=== PATIENT | male | born 1945 | race Two or more races ===

== ENCOUNTER → 2017-01-16 | Outpatient (CLI) | payer OTHER ==
--- NOTE | 2017-02-02 00:35 | ECWPNPC ---
PATIENT NAME: JUANY MUELLER : 1945 GENDER: MALE VISIT DATE: 01/16/2017 DISCHARGE DATE: 01/16/17 1221 VISIT LOCKED DATE TIME: PHYSICIAN: ITA PATRICK RESOURCE: ITA PATRICK REASON FOR APPOINTMENT 1. BACK HISTORY OF PRESENT ILLNESS HISTORY OF PRESENT ILLNESS: 71 Y/O MALE WITH LONG HISTORY OF CHRONIC LOW BACK PAIN.FELL FROM TRUCK [employer] 15 YEARS AGO AND LANDED ON PAVEMENT.SUFFERS FROM CHRONIC LOW BACK AND LEG PAIN.PAIN IS AGGREVATED BY WALKING AND RELIEVED BY SITTING.WAS USING GABAPENTIN 800MG TID AND TIZANIDINE 2MG TWO TAB. AT HS.FOUND TIZANIDINE HELPFUL AT NIGHT BUT REALLY NO IMPROVEMENT IN PAIN WITH GABAPENTIN.HAS BEEN USING IBUPROFEN 200MG EIGHT TABLETS DAILY.RATING PAIN VAS 10/10.DENIES RECENT FEVER ILLNESS OR WEIGHT LOSS.REPORTING NORMAL BOWEL AND BLADDER FUNCTION.HAS TRIALED PT AND PERSONAL CLOTHING LAUNDRY AIDE WITHOUT IMPROVEMENT AND SOME AGGREVATION.REPORTING POOR SLEEP AT NIGHT DUE TO PAIN. FALL RISK SCREENING: SCREENING :NO FALLS IN THE PAST YEAR CURRENT MEDICATIONS TAKING CARVEDILOL 25 MG TABLET ORALLY TAKING ATORVASTATIN CALCIUM 20 MG TABLET 1 TABLET ORALLY ONCE A DAY TAKING METFORMIN HCL 500 MG TABLET 1 TABLET WITH MEALS ORALLY TWICE A DAY TAKING GABAPENTIN 800 MG TABLET 1 TABLET ORALLY THREE TIMES A DAY TAKING LASIX 40 MG TABLET 1 TABLET ORALLY ONCE A DAY TAKING TIZANIDINE HCL 2 MG CAPSULE 1 CAPSULE NEEDED ORALLY BID TAKING ARTHRITIS PAIN REGIMEN EX ST 500 MG TABLET DELAYED RELEASE 1 TABLET ORALLY ONCE A DAY MEDICATION LIST REVIEWED AND RECONCILED WITH THE PATIENT PAST MEDICAL HISTORY LOW BACK PAIN CAD DM HEADACHE HEARING LOSS HEART FAILURE RHEUMATIC FEVER ANGINA ALLERGIES N.K.D.A. SURGICAL HISTORY INTESTINAL POLYP REMOVED APPENDECTOMY TONSILLECTOMY RIGHT FOOT HEEL FX PIN PLACED CARDIAC STENTS X2 FAMILY HISTORY FATHER: 66 YRS MOTHER: 78 YRS, DIAGNOSED WITH DIABETES SIBLINGS: ALIVE SON(S): ALIVE 1 BROTHER(S) , 1 SISTER(S) . 2 SON(S) , 1 DAUGHTER(S) . FATHER OF BLOOD CLOTPT HAS 1 CHILD . SOCIAL HISTORY GENERAL: TOBACCO USE ARE YOU A:FORMER SMOKER HOW LONG HAS IT BEEN SINCE YOU LAST SMOKED?> 10 YEARS LUNG CANCER SCREENING SMOKING STATUS:FORMER SMOKER ALCOHOL SCREENING POINTS0 INTERPRETATIONNEGATIVE OCCUPATION: MECHANICAL DESIGN TECHNICIAN. MARITAL STATUS: . [employer] [id number] EP[employer] LANGUAGE LANGUAGES SPOKEN:BARBADIAN EDUCATION LEVEL OF EDUCATION:NOT FINISHED COLLEGE LEARNING BARRIERS / SPECIAL NEEDS HEARING IMPAIRED?YES :HEARING AIDES VISION IMPAIRED?YES :CORRECTIVE LENSES COGNITIVELY IMPAIRED?NO READINESS TO LEARN?YES LEARNING PREFERENCES?YES :BOOKLETS, HANDOUTS SPECIAL DEVICES?YES :[facility] PFS, CLERGY, PUBLIC HEALTH REFERRALS HAS THE PATIENT BEEN EDUCATED REGARDING HIS/HER PLAN OF CARE?YES HAS THE PATIENT BEEN EDUCATED REGARDING PAIN, THE RISK FOR PAIN, THE IMPORTANCE OF EFFECTIVE PAIN MANAGEMENT, AND THE PAIN ASSESSMENT PROCESS?YES ADVANCE DIRECTIVES HEALTH CARE PROXY?NO WOULD YOU LIKE MORE INFORMATION?NO DO YOU HAVE A DNR?NO WOULD YOU LIKE MORE INFORMATION?NO LIVING WILL?NO WOULD YOU LIKE MORE INFORMATION?NO POWER OF INSTALL TECHNICIAN?NO WOULD YOU LIKE MORE INFORMATION?NO RETIRED: NO. HOSPITALIZATION/MAJOR DIAGNOSTIC PROCEDURE S/S FROM TIC BITE, PT DENIES LYME DISEASE SURGERY RELATED REVIEW OF SYSTEMS REVIEWED BY: PROVIDER: ITA ESPINOSA . CONSTITUTIONAL: ANY CHANGE IN YOUR MEDICAL CONDITION? NO . CHILLS NO . FEVER NO . INFECTION: DO YOU HAVE NEW INFECTIONS? NO . DO YOU HAVE HISTORY OF MRSA? NO . MUSCULOSKELETAL: ANY NEW PATTERNS OF PAIN OR NUMBNESS? YES, PT STATES HE WAS TAKING GABAPENTIN 800 TID AND TIZANIDINE 2 BID PERSCRIBED BY PAIN CLINIC [facility] IN [place], [place]. PT STATES HE RECEIVED A LETTER FROM [facility] THAT THEY NO LONGER ACCEPT HIS INSURANCE. PT WENT TO PCP TO ASK FOR REFILLS ON GABAPENTIN & TIZANIDINE AND WAS REFERED TO [facility] . GASTROENTEROLOGY: ANY NEW CHANGE IN BOWEL CONTROL? NO . GENITOURINARY: ANY NEW CHANGE IN BLADDER CONTROL? NO . IS THERE A CHANCE YOU COULD BE ? NO . HEMATOLOGY/LYMPH: DO YOU TAKE ANY BLOOD THINNERS? (FOR EXAMPLE- COUMADIN, PLAVIX, AGGRENOX, PLATEL, PRADAXA, OR XARELTO) NO . WHEN WAS YOUR LAST DOSE? DATE: TIME: . NEUROLOGY: HAVE YOU FALLEN IN THE PAST 6 MONTHS? NO . ANY NEW EXTREMITY NUMBNESS OR WEAKNESS? NO . CARDIOLOGY: DO YOU HAVE A PACEMAKER OR DEFIBRILLATOR? NO . RESPIRATORY: HAVE YOU BEEN SICK IN THE PAST WEEK? NO . FEVER NO . FLU LIKE SYMPTOMS? NO . COUGH NO . INTEGUMENTARY: DO YOU HAVE ANY RASHES OR OPEN SORES? NO . ALLERGIC/IMMUNO: ARE YOU ALLERGIC TO SHELLFISH OR IV DYE? NO . ANY NEW ALLERGIES? NO . PSYCHIATRIC: DO YOU HAVE THOUGHTS OF HURTING YOURSELF OR SOMEONE ELSE? NO . ARE YOU ABUSED, NEGLECTED, OR IN AN UNSAFE ENVIRONMENT? NO . ENDOCRINOLOGY: ARE YOU DIABETIC? YES . OTHER: DO YOU NEED ANY PRESCRIPTIONS? YES, PT ASKING FOR GABAPENTIN & TIZANIDINE . IF YES, PLEASE LIST: ____ . ANY NEW PROBLEMS WITH YOUR MEDICATIONS? NO . WHEN DID YOU LAST EAT? ____ . WHEN DID YOU LAST DRINK? ____ . WHAT DID YOU LAST DRINK? ____ . NAME OF PERSON DRIVING YOU HOME? ____ . DO YOU HAVE ANY OTHER QUESTIONS OR CONCERNS NO . VITAL SIGNS WT 255 LBS, HT 70 IN, BMI 36.58 INDEX, BP 140/85 MM HG, HR 64 /MIN, RR 16 /MIN, TEMP 98.5 F, OXYGEN SAT % 94, REVIEWED BY: EM. EXAMINATION GENERAL EXAMINATION: GENERAL APPEARANCE:COMFORTABLE. PSYCHAFFECT NORMAL. NECK:TRACHEA MIDLINE. NO CERVICAL OR SUPRACLAVICULAR LYMPHADENOPATHY NOTED. LUNGS:LUNG [place] ARE CLEAR TO AUSCULTATION BILATERALLY. GOOD MOVEMENT OF AIR. HEART:S1, S2 IN A REGULAR RATE AND RHYTHM. NO SIGNIFICANT MURMURS, RUBS OR GALLOPS NOTED. ABDOMEN:SOFT, NON-TENDER, NO ORGANOMEGALY, BOWEL SOUNDS ARE NORMAL. MUSCULOSKELETAL:MUSCLE STRENGTH TESTING 5/5 RIGHT.LEFT LEG DECREASED SENSATION TO LIGHT TOUCH.MUSCLE STRENGTH TESTING 3/5 RIGHT.. LUMBAR SACRAL SPINEPALPATION: POSITIVE FOR PAIN OVER L/S SPINE. POSITIVE FOR PAIN OVER L/S PARASPINALS. 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 WITHOUT [id number] PROCEDURE CODES FA211 ESTABILISHED PATIENT [facility] CHARGE DISPOSITION & COMMUNICATION FOLLOW UP 4 WEEKS ELECTRONICALLY SIGNED BY FRANCISCA PRYOR ON 02/01/2017 AT 09:37 PM EDT DISCLAIMER : THIS IS A VISIT SUMMARY EXTRACTED FROM THE [employer] CHART. IT IS NOT A COPY OF THE [employer] PROGRESS NOTE. TOYA
== END ==
LOC: M PAIN 11:15
PROVIDERS: ATTEND Nurse Practitioner Family
DX: G89.29 Other chronic pain (principal); M54.40 Lumbago with sciatica, unspecified side; E11.9 Type 2 diabetes mellitus without complications; Z79.84 Long term (current) use of oral hypoglycemic drugs; Z79.899 Other long term (current) drug therapy; Z87.891 Personal history of nicotine dependence

== ENCOUNTER → 2017-02-20 | Outpatient (CLI) | payer OTHER ==
--- NOTE | 2017-02-20 12:18 | REP ---
MR LUMBAR SPINE WITHOUT CONTRAST: HISTORY: Back pain. Decreased signal intensity on T2-weighted images is present in the visualized t thoracic and lumbar intervertebral discs. The discs are decreased in height. These findings are consistent with disc degeneration. A diffuse disc bulge with associated osteophyte formation is present at the L1-2 level. There is hypertrophy of the ligamenta flava and posterior articulating facets. These findings produce mild central canal stenosis. There is compression of the left L1 nerve in the neural foramen. The right L1 nerve exits the neural foramen without compression. A diffuse disc bulge with associated osteophyte formation is present at the L2-3 level. There is hypertrophy of the ligamenta flava and posterior articulating facets. These findings produce severe central canal stenosis. There is compression of the L2 nerves in the neural foramina . A diffuse disc bulge with associated osteophyte formation is present at the L3-4 level. There is hypertrophy of the ligamenta flava and posterior articulating facets. These findings produce severe central canal stenosis. There is compression of the L3 nerves in the neural foramina. A diffuse disc bulge with associated osteophyte formation is present at the L4-5 level. There is hypertrophy of the ligamenta flava and posterior articulating facets. These findings produce moderate central canal stenosis. There is compression of the L4 nerves in the neural foramina. A diffuse disc bulge is present at the L5-S1 level. There is minimal compression of the thecal sac. There is hypertrophy of the posterior articulating facets. There are 5 mm of grade 1 spondylolisthesis of L5 on S1. This is associated with L5 pars defects. There is compression of the L5 nerves in the neural foramina. The conus medullaris is normal in appearance terminating at the level of the T12-L1 intervertebral disc. There is an old compression fracture of the L1 vertebral body with minimal height loss. Increased signal intensity on T2-weighted images is present in the endplates of the L1 through S1 vertebral bodies. This represents degenerative change. There is scoliosis convex to the left. IMPRESSION: 1. Mild central canal stenosis at the L1-2 level secondary to disc bulge, ligamentous and facet hypertrophy and osteophyte formation. There is compression of the left L1 nerve in the neural foramen. 2. Severe central canal stenosis at the L2-3 and L3-4 levels secondary to disc bulge ligamentous and facet hypertrophy and osteophyte formation. There is compression of the L2 and L3 nerves in the neural foramina. 3. Moderate central canal stenosis at the L4-5 level secondary to disc bulge, ligamentous and facet hypertrophy and osteophyte formation. There is compression of the L4 nerves in the neural foramina. 4. Diffuse disc bulge at the L5-S1 level with minimal thecal sac compression. There is grade 1 spondylolisthesis of L5 on S1 with associated L5 pars defects. There is compression of the L5 nerves in the neural foramina. I Signed by Jake Goldstein MD 02/20/2017 12:21 P
== END ==
LOC: M PLARAD 10:29
PROVIDERS: ATTEND Nurse Practitioner Family
DX: M54.5 Low back pain (principal)

== ENCOUNTER → 2017-03-19 | Outpatient (CLI) | payer OTHER ==
--- NOTE | 2017-04-09 00:44 | ECWPNPC ---
PATIENT NAME: JUANY MUELLER : 1945 GENDER: MALE VISIT DATE: 03/19/2017 DISCHARGE DATE: 03/19/17 1210 VISIT LOCKED DATE TIME: PHYSICIAN: ITA PATRICK RESOURCE: ITA PATRICK REASON FOR APPOINTMENT 1. REVIEW MRI HISTORY OF PRESENT ILLNESS HISTORY OF PRESENT ILLNESS: HERE FOR F/U AND MANAGEMENT OF CHRONIC LOW BACK PAIN WITH LEFT LEG RADICULAR SYMPTOMS.RATING PAIN VAS 8/10.MRI L/S SPINE 02/20/17 IS REVIEWED WITH PATIENT AND HIS AND DISCUSSED TREATMENT OPTIONS WHICH TOOK >20MIN OF EXAM TIME.HE WAS STARTED ON LYRICA 75MG BID AT INITIAL VISIT AND IS NOT FINDING THIS HELPFUL.DISCUSSED TREATMENT OPTIONS. PAIN THE PATIENT DESCRIBES THE PAIN... FALL RISK SCREENING: SCREENING :NO FALLS IN THE PAST YEAR CURRENT MEDICATIONS TAKING CARVEDILOL 25 MG TABLET ORALLY TAKING ATORVASTATIN CALCIUM 20 MG TABLET 1 TABLET ORALLY ONCE A DAY TAKING METFORMIN HCL 500 MG TABLET 1 TABLET WITH MEALS ORALLY TWICE A DAY TAKING GABAPENTIN 800 MG TABLET 1 TABLET ORALLY THREE TIMES A DAY TAKING LASIX 40 MG TABLET 1 TABLET ORALLY ONCE A DAY TAKING TIZANIDINE HCL 2 MG CAPSULE 1 CAPSULE NEEDED ORALLY BID TAKING ARTHRITIS PAIN REGIMEN EX ST 500 MG TABLET DELAYED RELEASE 1 TABLET ORALLY ONCE A DAY TAKING LYRICA 75 MG CAPSULE 1 CAPSULE ORALLY TWICE A DAY MDD2 TAKING TIZANIDINE HCL 4 MG TABLET 1 TABLET NEEDED ORALLY ONE AT HS MEDICATION LIST REVIEWED AND RECONCILED WITH THE PATIENT PAST MEDICAL HISTORY LOW BACK PAIN CAD DM HEADACHE HEARING LOSS HEART FAILURE RHEUMATIC FEVER ANGINA ALLERGIES N.K.D.A. SURGICAL HISTORY INTESTINAL POLYP REMOVED APPENDECTOMY TONSILLECTOMY RIGHT FOOT HEEL FX PIN PLACED CARDIAC STENTS X2 SOCIAL HISTORY GENERAL: TOBACCO USE ARE YOU A:FORMER SMOKER HOW LONG HAS IT BEEN SINCE YOU LAST SMOKED?> 10 YEARS LUNG CANCER SCREENING SMOKING STATUS:FORMER SMOKER ALCOHOL SCREENING DID YOU HAVE A DRINK CONTAINING ALCOHOL IN THE PAST YEAR?NO POINTS0 INTERPRETATIONNEGATIVE OCCUPATION: REHAB CARE ASSISTANT. MARITAL STATUS: . PRESYBETERIAN [id number] ANABAPTIST LANGUAGE LANGUAGES SPOKEN:THAI EDUCATION LEVEL OF EDUCATION:NOT FINISHED COLLEGE LEARNING BARRIERS / SPECIAL NEEDS HEARING IMPAIRED?YES :HEARING AIDES VISION IMPAIRED?YES :CORRECTIVE LENSES COGNITIVELY IMPAIRED?NO READINESS TO LEARN?YES LEARNING PREFERENCES?YES :BOOKLETS, HANDOUTS SPECIAL DEVICES?YES :[facility] PFS, CLERGY, PUBLIC HEALTH REFERRALS HAS THE PATIENT BEEN EDUCATED REGARDING HIS/HER PLAN OF CARE?YES HAS THE PATIENT BEEN EDUCATED REGARDING PAIN, THE RISK FOR PAIN, THE IMPORTANCE OF EFFECTIVE PAIN MANAGEMENT, AND THE PAIN ASSESSMENT PROCESS?YES ADVANCE DIRECTIVES HEALTH CARE PROXY?NO WOULD YOU LIKE MORE INFORMATION?NO DO YOU HAVE A DNR?NO WOULD YOU LIKE MORE INFORMATION?NO LIVING WILL?NO WOULD YOU LIKE MORE INFORMATION?NO POWER OF ANIMAL EVISCERATOR?NO WOULD YOU LIKE MORE INFORMATION?NO RETIRED: NO. HOSPITALIZATION/MAJOR DIAGNOSTIC PROCEDURE S/S FROM TIC BITE, PT DENIES LYME DISEASE SURGERY RELATED REVIEW OF SYSTEMS REVIEWED BY: PROVIDER: ITA ESPINOSA . CONSTITUTIONAL: ANY CHANGE IN YOUR MEDICAL CONDITION? NO . CHILLS NO . FEVER NO . INFECTION: DO YOU HAVE NEW INFECTIONS? NO . DO YOU HAVE HISTORY OF MRSA? NO . MUSCULOSKELETAL: ANY NEW PATTERNS OF PAIN OR NUMBNESS? NO . GASTROENTEROLOGY: ANY NEW CHANGE IN BOWEL CONTROL? NO . GENITOURINARY: ANY NEW CHANGE IN BLADDER CONTROL? NO . IS THERE A CHANCE YOU COULD BE ? NO . HEMATOLOGY/LYMPH: DO YOU TAKE ANY BLOOD THINNERS? (FOR EXAMPLE- COUMADIN, PLAVIX, AGGRENOX, PLATEL, PRADAXA, OR XARELTO) NO . WHEN WAS YOUR LAST DOSE? DATE: TIME: . NEUROLOGY: HAVE YOU FALLEN IN THE PAST 6 MONTHS? NO . ANY NEW EXTREMITY NUMBNESS OR WEAKNESS? NO . CARDIOLOGY: DO YOU HAVE A PACEMAKER OR DEFIBRILLATOR? NO . RESPIRATORY: HAVE YOU BEEN SICK IN THE PAST WEEK? NO . FEVER NO . FLU LIKE SYMPTOMS? NO . COUGH NO . INTEGUMENTARY: DO YOU HAVE ANY RASHES OR OPEN SORES? NO . ALLERGIC/IMMUNO: ARE YOU ALLERGIC TO SHELLFISH OR IV DYE? NO . ANY NEW ALLERGIES? NO . PSYCHIATRIC: DO YOU HAVE THOUGHTS OF HURTING YOURSELF OR SOMEONE ELSE? NO . ARE YOU ABUSED, NEGLECTED, OR IN AN UNSAFE ENVIRONMENT? NO . ENDOCRINOLOGY: ARE YOU DIABETIC? NO . OTHER: DO YOU NEED ANY PRESCRIPTIONS? NO . IF YES, PLEASE LIST: ____ . ANY NEW PROBLEMS WITH YOUR MEDICATIONS? NO . WHEN DID YOU LAST EAT? ____ . WHEN DID YOU LAST DRINK? ____ . WHAT DID YOU LAST DRINK? ____ . NAME OF PERSON DRIVING YOU HOME? ____ . DO YOU HAVE ANY OTHER QUESTIONS OR CONCERNS NO, PT STATES HE HAD A FLU VACCINE 2 WEEKS AGO . VITAL SIGNS WT 249.4 LBS, HT 70 IN, BMI 35.78 INDEX, BP 151/79 MM HG, HR 73 /MIN, RR 16 /MIN, TEMP 97.9 F, OXYGEN SAT % 96%, NA INITIALS TL 1103, REVIEWED BY: EM. EXAMINATION GENERAL EXAMINATION: GENERAL APPEARANCE:COMFORTABLE . PSYCHAFFECT NORMAL . NECK:TRACHEA MIDLINE. NO CERVICAL OR SUPRACLAVICULAR LYMPHADENOPATHY NOTED . LUNGS:LUNG [place] ARE CLEAR TO AUSCULTATION BILATERALLY. GOOD MOVEMENT OF AIR . HEART:S1, S2 IN A REGULAR RATE AND RHYTHM. NO SIGNIFICANT MURMURS, RUBS OR GALLOPS NOTED . ABDOMEN:SOFT, NON-TENDER, NO ORGANOMEGALY, BOWEL SOUNDS ARE NORMAL . MUSCULOSKELETAL:MUSCLE STRENGTH TESTING 5/5 RIGHT.LEFT LEG DECREASED SENSATION TO LIGHT TOUCH.MUSCLE STRENGTH TESTING 3/5 RIGHT. . LUMBAR SACRAL SPINEPALPATION: POSITIVE FOR PAIN OVER L/S SPINE. POSITIVE FOR PAIN OVER L/S PARASPINALS.SPECIFIC POINT TENDERNESS OVER L4/5-L5/S1 LUMBAR FACETS WITH FACET LOADING . DIAGNOSTIC TESTS REVIEWEDMRI L/S SPINE 02-20-17-REVIEWED. 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 PROCEDURE CODES FA211 ESTABILISHED PATIENT [facility] FAC[facility] CHARGE DISPOSITION & COMMUNICATION FOLLOW UP 2WK POST (REASON: BILATERAL L3/4-L5/S1 THERAPEUTIC LUMBAR FACET BLOCK) ELECTRONICALLY SIGNED BY FRANCISCA PRYOR ON 04/08/2017 AT 05:05 PM EST DISCLAIMER : THIS IS A VISIT SUMMARY EXTRACTED FROM THE [email or web address] CHART. IT IS NOT A COPY OF THE [email or web address] PROGRESS NOTE. [facility]
== END ==
LOC: M PAIN 11:00
PROVIDERS: ATTEND Nurse Practitioner Family
DX: M54.40 Lumbago with sciatica, unspecified side (principal); M48.062 Spinal stenosis, lumbar region with neurogenic claudication; M46.94 Unspecified inflammatory spondylopathy, thoracic region; E11.9 Type 2 diabetes mellitus without complications; G89.29 Other chronic pain; Z79.84 Long term (current) use of oral hypoglycemic drugs; Z79.899 Other long term (current) drug therapy; Z87.891 Personal history of nicotine dependence; Z95.5 Presence of coronary angioplasty implant and graft

== ENCOUNTER → 2017-05-13 | Outpatient (CLI) | payer OTHER ==
[~2017-05-13] MED LIST: BUPIVACAINE HCL 0.25% 30 ML VIAL As Ordered; ISOVUE-M 300 61% 15ML VIAL (Q9967) As Ordered; LIDOCAINE 1% SDV INJ 30 ML VIAL As Ordered; TRIAMCINOLONE ACETONIDE SUSP 40 MG/ML VIAL (J3301) As Ordered; diazePAM 5 MG TAB As Ordered; oxyCODONE 5MG TAB As Ordered
[2017-05-13 14:42] LABS: BEDSIDE GLUCOSE 96 MG/DL (83-110)
== END ==
LOC: M PAIN 10:15
DX: G89.29 Other chronic pain (principal); M47.816 Spondylosis without myelopathy or radiculopathy, lumbar region; M47.817 Spondylosis without myelopathy or radiculopathy, lumbosacral region; E11.9 Type 2 diabetes mellitus without complications; R51 Headache; I51.9 Heart disease, unspecified; Z79.84 Long term (current) use of oral hypoglycemic drugs; Z79.899 Other long term (current) drug therapy; Z87.891 Personal history of nicotine dependence
CPT/HCPCS: J3301

== ENCOUNTER → 2017-06-05 | Outpatient (CLI) | payer OTHER | LOC: M PAIN 14:30 | DX: M54.40 Lumbago with sciatica, unspecified side (principal); M48.062 Spinal stenosis, lumbar region with neurogenic claudication; M46.94 Unspecified inflammatory spondylopathy, thoracic region; K59.00 Constipation, unspecified; E11.9 Type 2 diabetes mellitus without complications; R51 Headache; Z79.84 Long term (current) use of oral hypoglycemic drugs; Z79.899 Other long term (current) drug therapy; Z86.79 Personal history of other diseases of the circulatory system; Z87.891 Personal history of nicotine dependence | CPT/HCPCS: G0463 ==

== ENCOUNTER → 2017-08-03 | Outpatient (CLI) | payer OTHER ==
[~2017-08-03] MED LIST changes: -TRIAMCINOLONE ACETONIDE SUSP 40 MG/ML VIAL (J3301) As Ordered; -diazePAM 5 MG TAB As Ordered; -oxyCODONE 5MG TAB As Ordered
[2017-08-03 11:44] LABS: BEDSIDE GLUCOSE 103 MG/DL (83-110)
== END ==
LOC: M PAIN 10:15
DX: G89.29 Other chronic pain (principal); M47.816 Spondylosis without myelopathy or radiculopathy, lumbar region; M47.817 Spondylosis without myelopathy or radiculopathy, lumbosacral region; E11.9 Type 2 diabetes mellitus without complications; R51 Headache; Z79.84 Long term (current) use of oral hypoglycemic drugs; Z79.899 Other long term (current) drug therapy; Z86.79 Personal history of other diseases of the circulatory system; Z87.891 Personal history of nicotine dependence
CPT/HCPCS: Q9967

== ENCOUNTER 2020-01-11 19:09 | Inpatient (IN) | payer MEDICARE ==
[~2020-01-11] VITALS: Ht 177.8 cm; Wt 112.4 kg
[2020-01-11 20:20] VITALS: BP 155/104
[2020-01-11 20:30] VITALS: BP 140/83
[2020-01-11] MEDS ORDERED: ACETAMINOPHEN TAB 650MG DOSE (2X325MG) PO PRN (20:45)
[2020-01-11 21:00] VITALS: BP 114/64
[2020-01-11 21:30] VITALS: BP 115/55
[2020-01-11] MEDS ORDERED: MELO15TA28 PO (21:33)
[2020-01-11] MEDS ORDERED: HYDR25TAB PO (21:33)
[2020-01-11] MEDS ORDERED: CYCL10TA5 PO (21:33)
[2020-01-11] MEDS ORDERED: LISI10TA4 PO (21:33)
[2020-01-11] MEDS ORDERED: SIMV20TA22 PO (21:33)
[2020-01-11] MEDS ORDERED: D31000TA2 PO (21:33)
[2020-01-11] MEDS ORDERED: VITA1TAB26 PO (21:33)
[2020-01-11] MEDS ORDERED: CYAN100049 PO (21:34)
--- NOTE | 2020-01-11 21:39 | HPEPDOC ---
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 He reports a 3 day history of dizziness, lightheadedness, and blurry vision since Thursday afternoon. He thought the symptoms would resolve on their own but they didn't so he spoke with his PCP on Thursday who advised him to go to the emergency department. On arrival at 1330 on 01/11/2020 he was normotensive, but found to be in acute renal failure with mild leukocytosis, normal CT head, and MRI with the above findings. An hour after initial vitals his blood pressure was found to be 83/59, he received 2 liters of NS before his blood pressure recovered to 115/64. Patient was transferred to [facility] due to hypotension in the face of CVA as well as for higher level of stroke care. PAST MEDICAL HISTORY: CAD w/ x2 stents placed in 1970s MT at 35 y/o T2DM HTN Chronic back pain PAST SURGICAL HISTORY: Laminectomy Polypectomy appendectomy L-foot surgery SOCIAL HISTORY: Quit smoking at 35 y/o with 25 pack year history, relays history of heavy alcohol use but has not had a drink in 15 years, Lives alone. Owns a dog. No hx of foreign travel. FAMILY HISTORY: No family hx of strokes or early/premature cardiac . ALLERGIES: Please see below. REVIEW OF SYSTEMS: Constitutional: Denies fevers, chills, night sweats, or recent unexpected weight change HEENT: Denies Headaches, head trauma, Admits to blurry vision. Visual changes. Denies nose bleeds, or difficulty swallowing Cardiovascular: Denies chest pain, palpitations, or orthopnea Respiratory: Denies cough, wheezing, or shortness of breath GI: Karl nausea, vomiting, abdominal pain, diarrhea or constipation : Denies pain with urination or frequency Musculoskeletal: Denies joint pain or swelling Neuro / Psych: Denies muscle weakness, admits to tingling in LUE, LLE. Admits to dizziness. Skin: Denies skin rashes HOME MEDICATIONS: Please see below. PHYSICAL EXAMINATION: VITAL SIGNS: See below. GENERAL APPEARANCE: Well appearing male laying comfortably in bed in no acute distress. HEENT: NC, AT, EOMI, no scleral icterus, mucous membranes moist, no pharyngeal erythema. CARDIOVASCULAR: RRR, normal S1 and S2. No murmurs, gallops, or rubs. LUNGS: CTAB with full breath sounds, no wheezes, crackles, or rhonchi. No dullness to percussion. ABDOMEN: Bowel sounds present, abdomen is soft, non-tender, non-distended, no hepatosplenomegaly, no masses or eccyhmosis. No CVA tenderness. EXTREMITIES: No swelling or edema of bilateral LE. NEUROLOGICAL: A&Ox4. CN II-XII intact. Strength +5/5 in bilateral UE and LE. Patellar and bicep DTR's +2/4 bilaterally. Sensation intact in bilateral UE/LE. Gait slow, but normal. Witnessed transfer from EMS stretch to ground to bed without help. PSYCHIATRIC: Pleasant mood and affect LABORATORY DATA: See below. [facility] labs showing: WBC 11.2, H/H 14.6/41.7, plt count 233. Na 131, K 3.9, Cl 93, CO2 23, glucose 118, BUN/Cr 51/2.5 TP 6.4, alb 4.3, Ca 9.6, Tbili<0.7, AST/ALT 23/27, Mg 2.1 Trop<0.01 PT/INR 13.4/1.01 BNP 53 IMAGING: [facility] imaging: Normal CXR, CT head showing "No acute disease. Old right basal ganglia lacunar infarct, old left frontal infarct versus chronic ischemia." MRI report not included but per [facility] ED, showing R-cerebellar stroke. 01/11/2020 Carotid MRI w/o contrast IMPRESSION: 1. 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 2. A flow void is identified involving the V1 segment of the right vertebral artery. Artifact also limits evaluation of the distal V3 segment. These findings are contributed by artifact, although flow-limiting pathology cannot be excluded. There is suggested stenosis of the proximal left vertebral artery, although this can be contributed by artifact. These findings can be further evaluated with CTA or postcontrast MRA. 3. Additional findings described above. 01/11/2020 MRA without contrast: 1. Occlusion of the left internal carotid artery. Reconstitution of flow is identified at the level of the supraclinoid left internal carotid artery. 2. 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 There is stenosis of the A2 segment of the left anterior cerebral artery. 3. A dominant left vertebral artery is identified. 4. Bilateral MCA stenoses. 5. There is suggested stenosis of the ophthalmic segment of the right internal carotid artery, although when correlated with source images, this can be contributed by artifact. 6. Additional findings described above. 01/12/[address] without contrast: 1. No evidence of acute infarct or hemorrhage. 2. Right basal ganglia chronic lacunar infarct. 3. Heterogeneous decreased attenuation of the white matter, most likely due to chronic small vessel ischemic disease. More focal low attenuation in the left frontal periventricular white matter is probably due to previous rather than acute ischemia. MICROBIOLOGY: Please see below. Assessment/Plan: #. R-cerebellar CVA -MRA head, carotid artery MRI ordered- See above -Spoke with Dr. Tariq with neurology who advised a repeat head CT to insure no signs of brain herniation, head CT unremarkable. -Echo ordered -Starting full dose aspirin and high dose statin -PT/OT consulted. #. Acute renal failure -Unknown baseline Cr, but no history of kidney disease per patient -Nephrotoxic agents held -Will plan to hydrate patient overnight and recheck renal function in AM. #. T2DM -Sliding scale insulin -Consistent carb diet -A1c ordered #. CAD w/ x2 stents placed in 1970s -Patient's simvastatin 20 mg changed to Atorvastatin 40 mg #. Hypertension -Lisinopril, HCTZ held as patient had history of low BP at [facility] - Also held for poor renal function #. Chronic back pain -Naproxen, meloxicam held given renal dysfunction, patient should not be on 2 anti-inflammatories like this given his age and past hx of ACS -Tylenol ordered PRN #. Occlusion of right ICA, total -Discussed with Dr. Jensen -Currently on ASA, statin -Consider vascular consult DVT prophylaxis:zia garcia CODE STATUS: full code. Home Medications Scheduled Cholecalciferol (Vitamin D3) (Vitamin D3) 1,000 Unit Tablet, 1,000 UNITS PO DAILY Cyanocobalamin (Vitamin B-12) (Vitamin B-12) 1,000 Mcg Tablet, 1,000 MCG PO DAILY Hydrochlorothiazide (Hydrochlorothiazide) 25 Mg Tablet, 25 MG PO DAILY TAKES AROUND LUNCHTIME Lisinopril (Lisinopril) 10 Mg Tablet, 10 MG PO DAILY Meloxicam (Meloxicam) 15 Mg Tablet, 15 MG PO DAILY Simvastatin (Simvastatin) 20 Mg Tablet, 20 MG PO QHS Scheduled PRN Cyclobenzaprine HCl (Cyclobenzaprine HCl) 10 Mg Tablet, 10 MG PO QHS PRN for MUSCLE SPASMS Allergies Coded Allergies: No Known Allergies (Verified Allergy, Unknown, 01/11/20) GME ATTESTATION GME ATTESTATION My faculty preceptor for this patient encounter was physically present during the encounter and was fully available. All aspects of the patient interview, examination, medical decision making process, and medical care plan development were reviewed and approved by the faculty preceptor. The faculty preceptor is aware and concurs with the plan as stated in the body of this note and will attest to such by his/her cosignature. ATTENDING NOTE I, Valarie Allison , have independently examined this patient and performed my own physical exam, as well as reviewed the documentation and edited where necessary. I have discussed in detail with the resident / student the findings and plan of treatment as documented by the resident / student and edited their note. I agree with their findings and treatment plan and have edited their documentation. I will continue to follow the patient during this hospital stay CLARK HENDERSON DO Jan 11, 2020 21:39 Valarie Allison MD Jan 12, 2020 06:31
[2020-01-11 22:46] VITALS: BP 127/62
[2020-01-11 23:00] VITALS: BP 122/55
[2020-01-11] MEDS: NS 1,000 ML IV SCH (23:10)
--- NOTE | 2020-01-11 23:14 | REPVR ---
PROCEDURE INFORMATION: Exam: MR Angiogram Head Without Contrast, Arteries Exam date and time: 01/11/2020 10:42 PM Age: 74 years old Clinical indication: Dizziness and giddiness and weakness; Patient HX: Weakness, dizziness, unbalanced gait since 01/09/2020, and worsening as of this morning, nki. Prior mri without done @[facility], no access to images or report only note scanned in stating. "4mm infarct involving RT cerebral peduncle. No surrounding mass-effect. No bleed. No mass lesion. Old infarct left frontal lobe"; Additional info: Cerebellar stroke TECHNIQUE: Imaging protocol: MR angiogram head without contrast. Exam focused on the arteries. 3D rendering (Not supervised by radiologist): MIP and/or 3D reconstructed images were created by the technologist. COMPARISON: No relevant prior studies available. FINDINGS: ANTERIOR CIRCULATION: Right internal carotid artery: There is suggested stenosis of the ophthalmic segment of the right internal carotid artery, although when correlated with source images, this can be contributed by artifact. No aneurysm. Right middle cerebral artery: Stenosis involving a branch of the M1 segment of the right middle cerebral artery.. No aneurysm. Right anterior cerebral artery: No occlusion or significant stenosis. No aneurysm. Left internal carotid artery: Occlusion of the left internal carotid artery. Reconstitution of flow is identified at the level of the supraclinoid left internal carotid artery. Left middle cerebral artery: Stenoses visualized involving an M2 segment of the left middle cerebral artery. No aneurysm. 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 There is stenosis of the A2 segment of the left anterior cerebral artery. No aneurysm. POSTERIOR CIRCULATION: Right vertebral artery: No occlusion or significant stenosis. No aneurysm. Left vertebral artery: A dominant left vertebral artery is identified. No significant stenosis or occlusion of the left vertebral artery. Basilar artery: No occlusion or significant stenosis. No aneurysm. Increased tortuosity of the basilar artery. Right posterior cerebral artery: No occlusion or significant stenosis. No aneurysm. Left posterior cerebral artery: No occlusion or significant stenosis. No aneurysm. IMPRESSION: 1. Occlusion of the left internal carotid artery. Reconstitution of flow is identified at the level of the supraclinoid left internal carotid artery. 2. 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 There is stenosis of the A2 segment of the left anterior cerebral artery. 3. A dominant left vertebral artery is identified. 4. Bilateral MCA stenoses. 5. There is suggested stenosis of the ophthalmic segment of the right internal carotid artery, although when correlated with source images, this can be contributed by artifact. 6. Additional findings described above. Electronically signed by: Anup Lopez On 01/11/2020 23:14:29 PM
--- NOTE | 2020-01-11 23:22 | REPVR ---
PROCEDURE INFORMATION: Exam: MR Angiography Neck Without Contrast Exam date and time: 01/11/2020 10:42 PM Age: 74 years old Clinical indication: Dizziness and giddiness and weakness; Patient HX: Weakness, dizziness, unbalanced gait since 01/09/2020, and worsening as of this morning, nki. Prior mri without done @[facility], no access to images or report only note scanned in stating. "4mm infarct involving RT cerebral peduncle. No surrounding mass-effect. No bleed. No mass lesion. Old infarct left frontal lobe"; Additional info: Cerebellar stroke TECHNIQUE: Imaging protocol: Magnetic resonance angiography of the neck without contrast. 3D rendering (Not supervised by radiologist): MIP and/or 3D reconstructed images were created by the technologist. COMPARISON: MRA BRAIN W/O CONTRAST 01/11/2020 10:09 PM FINDINGS: Right common carotid artery: No stenosis or occlusion of the distal right common carotid artery. Artifact limits evaluation of the remaining right common carotid artery, without occlusion. 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 Right external carotid artery: No significant stenosis. No occlusion. Right vertebral artery: A flow void is identified involving the V1 segment of the right vertebral artery. Artifact also limits evaluation of the distal V3 segment. These findings are contributed by artifact, although flow-limiting pathology cannot be excluded. There is suggested stenosis of the proximal left vertebral artery, although this can be contributed by artifact. Left common carotid artery: No stenosis or occlusion of the distal left common carotid artery. Artifact limits evaluation of the remaining left common carotid artery, without occlusion. Left internal carotid artery: Extracranial segment is patent with no stenosis. No dissection or occlusion. Left external carotid artery: No significant stenosis. No occlusion. Left vertebral artery: See "Right vertebral artery" finding. IMPRESSION: 1. 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 2. A flow void is identified involving the V1 segment of the right vertebral artery. Artifact also limits evaluation of the distal V3 segment. These findings are contributed by artifact, although flow-limiting pathology cannot be excluded. There is suggested stenosis of the proximal left vertebral artery, although this can be contributed by artifact. These findings can be further evaluated with CTA or postcontrast MRA. 3. Additional findings described above. REFERENCES: NASCET CRITERIA. The degree of internal carotid artery stenosis is based on NASCET criteria. Normal is no stenosis. Mild is less than 50% stenosis. Moderate is 50-69% stenosis. Severe is 70% to 99% stenosis. Total occlusion is no detectable patent lumen. Electronically signed by: Anup Lopez On 01/11/2020 23:22:25 PM
[2020-01-12] MEDS: ATORVASTATIN 20 MG TAB PO SCH ×2 (01:41→20:08)
[2020-01-12 04:00] VITALS: BP 131/67
--- NOTE | 2020-01-12 04:28 | REPVR ---
PROCEDURE INFORMATION: Exam: CT Head Without Contrast Exam date and time: 01/12/2020 3:23 AM Age: 74 years old Clinical indication: Other: Stroke; Additional info: HX of r-cerebellar TECHNIQUE: Imaging protocol: Computed tomography of the head without contrast. Radiation optimization: All CT scans at this facility use at least one of these dose optimization techniques: automated exposure control; mA and/or kV adjustment per patient size (includes targeted exams where dose is matched to clinical indication); or iterative reconstruction. COMPARISON: MRA BRAIN W/O CONTRAST 01/11/2020 10:09 PM FINDINGS: Brain: There is mild, diffuse parenchymal volume loss. A focus of low attenuation in the right basal ganglia is most consistent with a chronic lacunar infarct. There is heterogeneity of the white matter attenuation, most consistent with moderate chronic white matter ischemic changes. There is particularly prominent low attenuation in the periventricular white matter in the left frontal lobe without associated mass effect, probably due to previous ischemia. There is no evidence of intracranial hemorrhage. The cortical/white matter interfaces are preserved throughout the brain. Ventricles: The ventricular system demonstrates mild diffuse compensatory enlargement. Bones/joints: No acute fractures of the skull are identified. Sinuses: The visualized paranasal sinuses are clear. Mastoid air cells: The mastoid air cells are clear. Vasculature: Atherosclerotic calcifications are seen in the cerebral arteries at the skull base. Soft tissues: The soft tissues appear unremarkable. IMPRESSION: 1. No evidence of acute infarct or hemorrhage. 2. Right basal ganglia chronic lacunar infarct. 3. Heterogeneous decreased attenuation of the white matter, most likely due to chronic small vessel ischemic disease. More focal low attenuation in the left frontal periventricular white matter is probably due to previous rather than acute ischemia. Electronically signed by: Demetrice Herrera On 01/12/2020 04:28:03 AM
[2020-01-12 05:26] LABS: HEMATOCRIT 42.4 % (42.0-52.0); HEMOGLOBIN 14.4 g/dl (13.5-17.5); MEAN CORPUSCULAR HEMOGLOBIN 29.9 pg (27.0-33.0); MEAN CORPUSCULAR VOLUME 88.1 fl (80.0-96.0); PLATELET COUNT, AUTOMATED 193 10^3/uL (150-450); RED BLOOD COUNT 4.81 10^6/uL (4.30-6.10); WHITE BLOOD COUNT 7.4 10^3/uL (4.0-10.0)
[2020-01-12 05:48] LABS: HEMOGLOBIN A1c 6.4 %
[2020-01-12 05:49] LABS: ALBUMIN 3.3 GM/DL (3.2-5.2); BILIRUBIN,TOTAL 0.5 MG/DL (0.2-1.0); CALCIUM LEVEL 8.5 MG/DL (8.8-10.2); CREATININE FOR GFR 1.61 MG/DL (0.70-1.30); GLOMERULAR FILTRATION RATE 44.9 (>42); POTASSIUM SERUM 3.8 MEQ/L (3.5-5.1); TOTAL PROTEIN 6.2 GM/DL (6.4-8.2)
[2020-01-12] MEDS ORDERED: DEXTROSE 50% 50 ML SYRINGE IV PRN (06:30)
[2020-01-12] MEDS ORDERED: GLUCOSE 4GM CHEW TABLET PO PRN (06:30)
[2020-01-12] MEDS ORDERED: GLUCAGON INJ 1MG VIAL SC PRN (06:30)
[2020-01-12] MEDS: NS 1,000 ML IV SCH (06:45)
[2020-01-12] MEDS: HumaLOG INSULIN (NovoLOG) PER UNIT SC SCH ×3 (07:30→17:30)
[2020-01-12 08:00] VITALS: BP 138/65
[2020-01-12] MEDS: ASPIRIN 325 MG TAB PO SCH (08:04)
[2020-01-12 11:08] LABS: PTH INTACT 94.1 PG/ML (18.5-88.0)
[2020-01-12 12:51] LABS: THYROID STIMULATING HORMONE 0.574 uIU/ML (0.358-3.740)
[2020-01-12 14:00] VITALS: BP 139/70
[2020-01-12 14:20] LABS: TOTAL PROTEIN,RANDOM URINE 11.3 MG/DL (0.0-12.0)
[2020-01-12 15:15] VITALS: BP 145/74
--- NOTE | 2020-01-12 15:31 | IPNPDOC ---
Text Note Date of Service The patient was seen on 01/12/20. NOTE S: Patient is a 75-year-old male who presented from [facility] emergency d [facility] after being diagnosed with right cerebellar stroke on CT head. The patient has had lightheadedness and blurry vision, dizziness since Thursday afternoon which got worse over the course of 2 days. Patient states improvement and since he is ready to go home. O: Patient looks much better today was walking around with PT all around the floor without any distress. Gen. appearance: well-appearing male sitting comfortably in a chair in no acute distress HEENT:AT/NC, moist mucous membranes no pharyngeal erythema. Cardiovascular: normal S1-S2 no murmurs gallops or rubs Lungs :clear to auscultation with full breath sounds no wheezing or crackles or rhonchi no dullness to percussion Abdomen: abdomen is soft nontender nondistended no hepatosplenomegaly no masses no CVA tenderness bowel sounds active. Extremities: no swelling or edema of bilateral extremities Neurological: Cranial nerves II-12 intact. Grade 5 out of 5 strength on the right side upper and lower extremity. grade 4 out of 5 strength on the left side upper and lower extremity. Sensations intact except for over the left ankle due to previous ankle surgery. Finger and nose test negative. Knee pat test negative. Rhomberg sign negative A&P: 1.Right cerebellar ischemic stroke likely secondary to underlying hypercholeste rolemia hypertriglyceridemia: The patient was transferred from [facility] in a state of hypotension his blood pressure was 83/59 IV fluids were started which increased pressure up to 131/67. CT head was done to rule out any hemorrhage. CT head showed old right basal ganglia lacunar infarct. Old left frontal infarct versus chronic ischemia. MRI neck Showed occlusion of right internal carotid artery, Neurology was consulted- they ordered. MRI of the brain: 1. Occlusion of the left internal carotid artery. Reconstitution of flow is identified at the level of the supraclinoid left internal carotid artery. 2. 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 There is stenosis of the A2 segment of the left anterior cerebral artery. 3. A dominant left vertebral artery is identified. 4. Bilateral MCA stenoses. 5. There is suggested stenosis of the ophthalmic segment of the right internal carotid artery. 2. Type 2 diabetes mellitus Patient started on sliding scale insulin Patient put on consistent carbohydrate diet 3. Bilateral lower extremity edema Patient's fluids were DC'd An echo was done report pending 4. Dyslipidemia Follow up with PCP Continue atorvastatin. Disposition: Patient is working well with PT can be discharged in a day. DVT prophylaxis: Patient is on VERITO stockings and sequentials. VS,Fishbone, I+O VS, Fishbone, I+O Laboratory Tests 01/12/20 05:12 Vital Signs Date Time Temp Pulse Resp B/P (MAP) Pulse Ox O2 Delivery O2 Flow Rate FiO2 01/12/20 14:00 98.2 78 18 139/70 (93) 95 Room Air I&O- Last 24 Hours up to 6 AM 01/12/20 06:00 Intake Total 240 ml Output Total 1025 ml Balance -785 ml GME ATTESTATION GME ATTESTATION My faculty preceptor for this patient encounter was physically present during the encounter and was fully available. All aspects of the patient interview, examination, medical decision making process, and medical care plan development were reviewed and approved by the faculty preceptor. The faculty preceptor is aware and concurs with the plan as stated in the body of this note and will attest to such by his/her cosignature. ATTENDING NOTE Patient was seen and examined by me personally with the residents and I agree with the above assessment and plan Jae Vallejo MD Jan 12, 2020 15:31 LEROY BURTON MD Jan 16, 2020 14:44
[2020-01-12] MEDS ORDERED: HumaLOG INSULIN (NovoLOG) PER UNIT SC SCH (21:00)
[2020-01-12 22:00] VITALS: BP 145/72
[2020-01-13 06:00] VITALS: BP 150/79
[2020-01-13 06:49] LABS: HEMATOCRIT 41.9 % (42.0-52.0); HEMOGLOBIN 14.2 g/dl (13.5-17.5); MEAN CORPUSCULAR HEMOGLOBIN 30.1 pg (27.0-33.0); MEAN CORPUSCULAR HGB CONC 33.9 g/dl (32.0-36.5); MEAN CORPUSCULAR VOLUME 88.8 fl (80.0-96.0); PLATELET COUNT, AUTOMATED 197 10^3/uL (150-450); RED BLOOD COUNT 4.72 10^6/uL (4.30-6.10); WHITE BLOOD COUNT 7.4 10^3/uL (4.0-10.0)
[2020-01-13 08:09] LABS: ALBUMIN 3.4 GM/DL (3.2-5.2); ALT/SGPT 30 U/L (12-78); BILIRUBIN,TOTAL 0.4 MG/DL (0.2-1.0); BLOOD UREA NITROGEN 34 MG/DL (7-18); CALCIUM LEVEL 8.6 MG/DL (8.8-10.2); CARBON DIOXIDE LEVEL 25 MEQ/L (21-32); CHLORIDE LEVEL 105 MEQ/L (98-107); GLOMERULAR FILTRATION RATE > 60.0 (>42); GLUCOSE, FASTING 122 MG/DL (70-100); POTASSIUM SERUM 4.6 MEQ/L (3.5-5.1); SODIUM LEVEL 136 MEQ/L (136-145); TOTAL PROTEIN 6.3 GM/DL (6.4-8.2)
[2020-01-13] MEDS: HumaLOG INSULIN (NovoLOG) PER UNIT SC SCH ×2 (08:24→12:00)
[2020-01-13] MEDS: ASPIRIN 325 MG TAB PO SCH (08:24)
[2020-01-13] MEDS ORDERED: ASPI-1 PO (09:52)
[2020-01-13] MEDS ORDERED: HYDR12.55 PO (10:47)
--- NOTE | 2020-01-13 15:50 | DS.PDOC ---
Discharge Summary General Date of Admission Jan 11, 2020 at 20:28 Date of Discharge Jan 13, 2020 at 13:20 Attending Physician: LEROY BURTON MD Discharge Summary PROCEDURES PERFORMED DURING STAY: None. ADMITTING DIAGNOSES/DISCHARGE DIAGNOSES: 1. Rt Cerebellar Ischemic CVA 2. Acute renal failure 3. Dyslipidemia 4. Type 2 Diabetes Mellitus 5. CAD 6. Hypertension 7. Chronic back pain COMPLICATIONS/CHIEF COMPLAINT: Hypotension s/p R cerebellar stroke. HISTORY OF PRESENT ILLNESS: Mr. Francis was transferred from [facility] ED after an MRI showed a right cerebellar stroke. He presented to [place] ED on 01/11/2020 at the suggestion of his PCP due to a 3 day history of dizziness, lightheadedness, and blurred vision. In addition to the MRI findings, he was found to be in acute renal failure and became hypotensive. He was stabilized with 2L of normal saline and transferred to [facility] for higher level stroke care and hypotension in the face of CVA. HOSPITAL COURSE/DISCHARGE PLAN: After admission an MRA head (occlusion of left internal carotid, BL MCA stenoses), carotid artery MRI (occlusion of right internal carotid), head CT (no acute infarct or hemorrhage, Rt basal ganglia chronic infarct, heterogeneous decreased attenuation of white matter), and echocardiogram were performed. Pt was started on aspirin and an increased statin dose. Possible nephrotoxic drugs were held. Fluids were discontinued after renal function improved. PT worked with him and he was ambulating well with the support of a walker. Pt is advised to follow up with PCP within the next 7 days. Follow up on echo. Hydrochlorothiazide dose reduced to half (12.5 mg BID). Statin was changed to atorvastatin 40mg for his underlying dyslipidemia. Pt educated on a good healthy heart, low cholesterol diet and on signs and symptoms of impending stroke. DISCHARGE MEDICATIONS: Please see below. ALLERGIES: Please see below. PHYSICAL EXAMINATION ON DISCHARGE: VITAL SIGNS: Please see below. GENERAL: Pt was seen performing morning ADLs without difficulty, was pleasant, and in no acute distress. HEENT: AT, NC, EOMI, no pharyngeal erythema, mucous membranes moist. NECK: no lymphadenopathy or JVD appreciated. CARDIOVASCULAR EXAMINATION: normal S1 and S2, no murmurs, gallops, or rubs. RESPIRATORY EXAMINATION: CTAB, no rales, rhonchi, or wheezes. ABDOMINAL EXAMINATION: soft, NT, ND, bowel sounds present in all 4 quadrants. EXTREMITIES: no swelling or edema. SKIN: no rashes appreciated. NEUROLOGICAL EXAMINATION: alert and oriented x4, CN II-XII grossly intact, strength 5/5 BL upper and lower extremities, sensation intact BL upper and lower extremities, normal gait, finger to nose sign negative, Romberg sign negative. PSYCHIATRIC EXAMINATION: Pleasant mood and affect. LABORATORY DATA: Please see below. IMAGING: -[place] imaging: CT head "No acute disease. Old right basal ganglia lacunar infarct, old left frontal infarct versus chronic ischemia." MRI report not included but per [place] ED, showing R cerebellar stroke. -CAROTID MRI w/out contrast (01/11/2020): - Impression "1. 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 2. A flow void is identified involving the V1 segment of the right vertebral artery. Artifact also limits evaluation of the distal V3 segment. These findings are contributed by artifact, although flow limiting pathology cannot be excluded. There is suggested stenosis of the proximal left vertebral artery, although this can be contributed by artifact. These findings can be further evaluated with CTA or postcontrast MRA. 3. Additional findings described above." -MRA w/out contrast (01/11/2020): - Impression "1. Occlusion of the left internal carotid artery. Reconstitution of flow is identified at the level of the supraclinoid left internal carotid artery. 2. 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 There is stenosis of the A2 segment of the left anterior cerebral artery. 3. A dominant left vertebral artery is identified. 4. Bilateral MCA stenoses. 5. There is suggested stenosis of the ophthalmic segment of the right internal carotid artery, although when correlated with source images, this can be contributed by artifact. 6. Additional findings described above." -Head CT w/out contrast (01/12/2020): - Impression "1. No evidence of acute infarct or hemorrhage. 2. Right basal ganglia chronic lacunar infarct. 3. Heterogeneous decreased attenuation of the white matter, most likely due to chronic small vessel ischemic disease. More focal low attenuation in the left frontal periventricular white matter is probably due to previous rather than acute ischemia." PROGNOSIS: Fair. ACTIVITY: As tolerated with walker. DIET: Diabetic diet, 2g sodium restriction. DISPOSITION: Home. DISCHARGE INSTRUCTIONS: 1. Follow up with PCP in 7 days. 2. Continue taking medications as advised. 3. Follow a consistent carbohydrate diet with 2g sodium restriction because of lower limb swelling. 4. Return to the ED in case of recurrence of symptoms or worsening status. DISCHARGE CONDITION: Stable. TIME SPENT ON DISCHARGE: Greater than 40 minutes. Vital Signs/I&Os Vital Signs Date Time Temp Pulse Resp B/P (MAP) Pulse Ox O2 Delivery O2 Flow Rate FiO2 01/13/20 06:00 97.2 67 17 150/79 (102) 93 Room Air I&O- Last 24 Hours up to 6 AM 01/13/20 06:00 Intake Total 1200 ml Output Total 2975 ml Balance -1775 ml Laboratory Data Labs 24H Laboratory Tests 2 01/12/20 11:51: Bedside Glucose (Misc Panel) 183H 01/12/20 13:31: Urine Random Creatinine 69.0, Urine Random Total Protein 11.3 01/12/20 16:38: Bedside Glucose (Misc Panel) 123H 01/12/20 19:40: Bedside Glucose (Misc Panel) 210H 01/13/20 05:47: Nucleated Red Blood Cells % (auto) 0.0, Anion Gap 6L, Glomerular Filtration Rate > 60.0, Calcium Level 8.6L, Total Bilirubin 0.4, Aspartate Amino Transf (AST/SGOT) 16, Alanine Aminotransferase (ALT/SGPT) 30, Alkaline Phosphatase 90, Total Protein 6.3L, Albumin 3.4, Albumin/Globulin Ratio 1.2 CBC/BMP Laboratory Tests 01/13/20 05:47 FSBS Laboratory Tests Test 01/12/20 11:51 01/12/20 16:38 01/12/20 19:40 Range/Units Bedside Glucose (Misc Panel) 183 123 210 83-110 MG/DL Discharge Medications Scheduled Aspirin (Aspirin) 325 Mg Tablet, 325 MG PO DAILY Cholecalciferol (Vitamin D3) (Vitamin D3) 1,000 Unit Tablet, 1,000 UNITS PO DAILY, (Reported) Cyanocobalamin (Vitamin B-12) (Vitamin B-12) 1,000 Mcg Tablet, 1,000 MCG PO DAILY, (Reported) Hydrochlorothiazide (Hydrochlorothiazide) 12.5 Mg Tablet, 12.5 MG PO DAILY Lisinopril (Lisinopril) 10 Mg Tablet, 10 MG PO DAILY, (Reported) Meloxicam (Meloxicam) 15 Mg Tablet, 15 MG PO DAILY, (Reported) Simvastatin (Simvastatin) 20 Mg Tablet, 20 MG PO QHS, (Reported) Scheduled PRN Cyclobenzaprine HCl (Cyclobenzaprine HCl) 10 Mg Tablet, 10 MG PO QHS PRN for MUSCLE SPASMS, (Reported) Allergies Coded Allergies: No Known Allergies (Verified Allergy, Unknown, 01/11/20) GME ATTESTATION GME ATTESTATION My faculty preceptor for this patient encounter was physically present during the encounter and was fully available. All aspects of the patient interview, examination, medical decision making process, and medical care plan development were reviewed and approved by the faculty preceptor. The faculty preceptor is aware and concurs with the plan as stated in the body of this note and will attest to such by his/her cosignature. GME ATTESTATION GME ATTESTATION My faculty preceptor for this patient encounter was physically present during the encounter and was fully available. All aspects of the patient interview, examination, medical decision making process, and medical care plan development were reviewed and approved by the faculty preceptor. The faculty preceptor is aware and concurs with the plan as stated in the body of this note and will attest to such by his/her cosignature. ATTENDING NOTE Patient was seen and examined by me personally with the residents and I agree with the above assessment and plan BE MONTALVO OMS-3 Jan 13, 2020 11:43 LEROY BURTON MD Jan 16, 2020 14:46
--- NOTE | 2020-01-14 21:14 | ECHO ---
DATE OF PROCEDURE: Age: 74 Gender: Male Height: 70 inches Weight: 240 pounds. Body surface area: 2.26 m/s Inpatient: ICU/Room 3205 REFERRING PHYSICIAN: Jose Trevino MD INDICATION: Cerebrovascular accident (CVA) cardiac source of embolic material? MEASUREMENTS: 2D measurements: RV 3.8 cm LV 5.0 cm Septum 1.4 cm Posterior wall 1.2 cm Aortic root 4.0 cm LA 4.8 cm Left ventricular ejection fraction (LVEF) 65% DOPPLER MEASUREMENTS: AV 2.0 m/s LVOT 1.0 m/s LVOT diameter 2.0 cm Mean AV systolic gradient 9 mmHg Dimensionless index 0.6 MV E 88, A 108, EE ration 0.8 Early mitral deceleration time 250 milliseconds E prime medial 6.5 A prime medial 8.5 E prime lateral 5.2 E/E prime ratio average 15/PCWP 20.6 mmHg PV 0.75 m/s Pulmonary artery acceleration time 106 milliseconds PASP 34 mmHg IVC 1.8 cm COMMENTS: Normal sinus rhythm with right bundle branch block. Occasional isolated premature ventricular contractions (PVCs) Technically challenging study, but some diagnostic useful information was still obtained. M-mode and 2dimensional echocardiography was performed with pulse, continuous wave, color flow and tissue Doppler studies. Mild concentric left ventricular hypertrophy with localized inferior hypo to akinesis suggestive of prior infarction. He had preserved global resting systolic function. Moderately dilated left atrium with grade 1 LV diastolic dysfunction and current estimated mean left atrial pressure was elevated. Normal right heart chamber sizes and motion with Doppler sign of mild pulmonary hypertension. Normal IVC size and collapse against an elevated central venous pressure. Mildly dilated aortic root. Mild aortic valvular sclerosis without apparent functional abnormality at this time. Moderate mitral annular calcification without inflow tract obstruction and only very mild insufficiency. Normal appearing tricuspid valve without demonstrable insufficiency. No apparent intracardiac mass or pericardial effusion. In light of the technical difficulty of this study, should a cardiac source of embolic material be seriously suspect, would strongly recommend a transesophageal echocardiogram. TOYA
== END 2020-01-13 13:13 | disposition home health service (06) | DRG 65 ==
LOC: EDSTATUS 20:26 → MERGE 20:28 → M ICU 20:28 → M MSPAV 01-12 15:05
PROVIDERS: ADMIT Internal Medicine Nephrology; ATTEND Internal Medicine
DX: I63.59 Cerebral infarction due to unspecified occlusion or stenosis of other cerebral artery (principal); N17.9 Acute kidney failure, unspecified; I25.10 Atherosclerotic heart disease of native coronary artery without angina pectoris; Z95.5 Presence of coronary angioplasty implant and graft; I25.2 Old myocardial infarction; E11.9 Type 2 diabetes mellitus without complications; I10 Essential (primary) hypertension; M54.9 Dorsalgia, unspecified; Z87.891 Personal history of nicotine dependence; I65.21 Occlusion and stenosis of right carotid artery; Z79.1 Long term (current) use of non-steroidal anti-inflammatories (NSAID); Z79.899 Other long term (current) drug therapy; E78.1 Pure hyperglyceridemia